=== PATIENT | female | born 1980 | race Caucasian/White ===

== ENCOUNTER 2018-04-30 13:28 | Emergency (ER) | payer BC ==
[2018-04-30 14:51] VITALS: BMI 35.9
--- NOTE | 2018-04-30 16:38 | US ---
Date of service: 04/30/2018 PROCEDURE: OB Pelvic Ultrasound HISTORY: BPP and cervical length LMP: Not submitted. COMPARISON: None available. FINDINGS: A single viable intrauterine gestation is identified in cephalic lie with heart rate of 130 beats per minute. An anterior placenta is appreciate without abruption or previa with cervical length variable between 3.2 and 3.5 cm. Consider possible contractions related variation. Biophysical profile results are as follows: breathing movements 2/2. movements 2/2. tones 2/2. Amniotic fluid 2/2. Total biophysical profile score 8/8. Amniotic fluid index measures 18.3 cm. More comprehensive ultrasonography available as clinically warranted. OTHER FINDINGS: None. IMPRESSION: Biophysical profile score 8/8. Cervical length appears variable may be a function of uterine contraction. Clinically correlate further.
[2018-04-30 17:07] LABS: SQUAMOUS EPITHIAL 4 /hpf (0-5); URINE BACTERIA RARE (<OCC); URINE BILIRUBIN NEGATIVE (NEGATIVE); URINE BLOOD MODERATE (NEGATIVE); URINE CLARITY SLIGHTY-CLOUDY (Clear); URINE COLOR STRAW (YELLOW); URINE GLUCOSE (UA) NEG (NEGATIVE); URINE LEUKOCYTE ESTERASE TRACE Leu/uL (Negative); URINE PROTEIN NEGATIVE (NEGATIVE); URINE UROBILINOGEN 0.2-1.0 mg/dL (0.2-1.0)
[2018-05-01 13:33] VITALS: BP 125/87; PULSE 90; RESP 18; TEMP 98.2; O2SAT 98
--- NOTE | 2018-05-01 15:13 | OBHP ---
Datetime: 04/30/2018 13:47 IP Adm Impression: , intrauterine IP Admit Plan: Observation/Evaluation Admit Comment, IP Provider: HPI Ob/ care: Dr. Cloud Obhx: Pmhx: HomeRx: SocialHx: SurgHx: Famhx: Allergies ROS negative except per HPI Physical Exam Gen: Heart: Lungs: Abd: Extremities: Assessment and Plan: Pelvic Type - PN: Not Done Extremities - PN: Normal Abdomen - PN: Normal Back - PN: Not Done Breast - PN: Not Done Lungs - PN: Normal Heart - PN: Normal Thyroid - PN: Not Done Neurologic - PN: Not Done HEENT - PN: Not Done General - PN: Normal Contraction Comments Provider: occasional Gestation - Est Wks by US: 33.4 IP Hx Assessment: The History has been Reviewed and is Current EGA AdmitDate IP: 33.4 Vital Signs Provider: Reviewed IP Chief Complaint: Vaginal bleeding Genitourinary Exam: Not Done DTRs - PN: Not Done
== END 2018-04-30 18:15 | disposition home or self-care (01) ==
LOC: H.EROB2 13:28 → H.EROB 13:56 → H.EROB2 18:15
DX: O26.853 Spotting complicating pregnancy, third trimester (principal); Z3A.33 33 weeks gestation of pregnancy

== ENCOUNTER 2018-05-04 05:40 | Inpatient (IN) | payer BC ==
[2018-05-04 07:12] VITALS: BMI 33.3
[2018-05-04] MEDS ORDERED: Betamethasone Soluspan 30 mg/5mL Inj Susp IM ONE ×2 (07:13→21:00)
[2018-05-04] MEDS ORDERED: Lactated Ringer's 1,000 ML IV SCH (07:15)
--- NOTE | 2018-05-04 07:24 | OBHP ---
Datetime: 05/04/2018 07:17 IP Adm Impression: , intrauterine IP Admit Plan: Observation/Evaluation Admit Comment, IP Provider: Patient is a @ 34.1 wks with bleeding and contractions. Diana reported that she was in hospital 04/30 with similar complaints, was evaluated, found to be closed exa m and discharged home. Over the weekend patient saw no bleeding. 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 No leaking, +FM. On exam, pt about 1cm dilated/thick/ high and noticeable blood on exam. FHR = 120 Cat-I, marcy q 3-7 mins A/P 1. Patient to be observed to rule out labor and/or abruption. Patient to be kept NPO, IVF started, Type and Screen, CBC, CMP 2. Will give Betamethasone and bedside U/S to evaluate placenta/growth to be done 3. Will observe patient to evaluate for change in status Pelvic Type - PN: Adequate Extremities - PN: Normal Abdomen - PN: Normal Back - PN: Normal Breast - PN: Normal Lungs - PN: Normal Heart - PN: Normal Thyroid - PN: Normal Neurologic - PN: Normal HEENT - PN: Normal General - PN: Normal FHR - Baseline A Provider: 120 Contraction Comments Provider: q 3-7 mins EGA AdmitDate IP: 34.1 Vital Signs Provider: Reviewed; Within Normal Limits IP Chief Complaint: Uterine contractions; Vaginal bleeding NICHD Variability Prov Fetus A: Moderate 6-25bpm NICHD Accel Fetus A IP Provider: 15X15 NICHD Decel Fetus A IP Provider: None Dilatation, Provider: 1cm Effacement, Provider: THick Station, Provider: -3 Genitourinary Exam: Normal DTRs - PN: Normal
[2018-05-04 07:57] LABS: BASO % 0.3 % (0.0-2.0); EOS # 0.3 K/uL (0.0-0.7); EOS % 3.4 % (0.0-4.0); HEMOGLOBIN 11.5 g/dL (12.0-16.0); LYMPH # 1.6 K/uL (1.0-4.3); LYMPH % 18.2 % (20.0-40.0); MEAN CELL VOLUME 86.7 fl (81.0-99.0); MEAN CORPUSCULAR HEMOGLOBIN 28.3 pg (27.0-31.0); MEAN CORPUSCULAR HGB CONC 32.7 g/dL (33.0-37.0); MEAN PLATELET VOLUME 8.2 fl (7.2-11.7); MONO # 0.6 K/uL (0.0-0.8); MONO % 6.6 % (0.0-10.0); NEUT # 6.3 K/uL (1.8-7.0); NEUT % 71.5 % (50.0-75.0); NRBC % 0.1 % (0.0-0.0); RBC 4.05 Mil/uL (3.80-5.20); RED CELL DISTRIBUTION WIDTH 14.2 % (11.5-14.5); WHITE BLOOD COUNT 8.9 K/uL (4.8-10.8)
[2018-05-04 08:05] LABS: ALB/GLOB RATIO 0.9 (1.0-2.1); ALBUMIN 3.3 g/dL (3.5-5.0); ALT/SGPT 26 U/L (9-52); AST/SGOT 21 U/L (14-36); BLOOD UREA NITROGEN 11 mg/dl (7-17); CALCIUM 8.7 mg/dL (8.4-10.2); GFR NON-AFRICAN AMERICAN > 60
--- NOTE | 2018-05-04 10:51 | OBADHP ---
Datetime: 05/04/2018 09:26 Admit Comment, IP Provider: 37 y/o female w/ hx of GDM @ 34.1wk GA presnted to [facility] w/ c/o p ainful contractions every 4 mins. She denies VFL, endorses movement. Denies headache, visual ch anges, CP, SOB, urinary symptoms. Last office visit 04/23/18. OB: Dr. Cloud Obhx: Anterior placenta _ GDM w/ current . x1 (03/2017) Pmhx: denies HomeRx: metformin 1000mg PO BID, vitamins SocialHx: denies toxic habits Surgicalhx: denies Famhx: Mother w/ DM2, Father w/ hypercholesterolemia Allergies: NKDA ROS: negative exept per HPI Phyiscal Exam: Gen: lying in bed comfortably Heart: S1S2 present, RRR Lungs: normal resp effort Abd: Gravid, normal BS, soft, non-tender Extremities: No swelling/erythema/tenderness Assessment and Plan 37 y/o female @ 34.1 wk IUP; threatened pre-term labor GDM on Metformin 1000mg PO BID @ home Anterior placenta Hx of in 2016 Blood type A+, AB neg, Rubella Immune, HBsAg neg, HIV neg 10/22/17, RPR neg 10/22/17, GC/C neg Admit to L_D for close monitoring Cont. [place] and NST monitoring Bethamethasone 12mg IM x1 now, and another dose in 12 hours Check fasting glucose, and 2 hours postprandial CBC, type and screen Diabetic diet Metfomin 1000mg PO BID Case discussed w/ attending, Dr. Ai Wilson, [facility] OB Hospitalist on-call. Pt seen on rounds. She is comfortable. No VB currently. She is hungry. PLAN: will admit for steroid doses/diabetic control/observing for labor progress/VB...sono today s houwed 35w size ceph (last week breech). Her and her husbands questoins answered. MAHNDO Extremities - PN: Normal Abdomen - PN: Normal Back - PN: Not Done Breast - PN: Not Done Lungs - PN: Normal Heart - PN: Normal Thyroid - PN: Not Done Neurologic - PN: Not Done HEENT - PN: Not Done General - PN: Normal Presentation-Admit: Vertex Gestation - Est Wks by US: 34.1 IP Hx Assessment: The History has been Reviewed and is Current Vital Signs Provider: Reviewed; Within Normal Limits IP Chief Complaint: Uterine contractions FHR Category Provider Fetus A: Category I NICHD Decel Fetus A IP Provider: None Genitourinary Exam: Not Done DTRs - PN: Not Done EGA AdmitDate IP: 34.1 IP Adm Impression: , intrauterine ; No Active Labor; Intact Membranes IP Admit Plan: Admit to unit Datetime: 05/04/2018 07:17 Pelvic Type - PN: Adequate FHR - Baseline A Provider: 120 Contraction Comments Provider: q 3-7 mins NICHD Variability Prov Fetus A: Moderate 6-25bpm NICHD Accel Fetus A IP Provider: 15X15 Dilatation, Provider: 1cm Effacement, Provider: THick Station, Provider: -3
--- NOTE | 2018-05-04 16:21 | US ---
Date of service: 05/04/2018 PROCEDURE: LIMITED OBSTETRICAL ULTRASOUND HISTORY: RECENT ONSET OF SPOTTING. COMPARISON: BIOPHYSICAL PROFILE STUDY 04/30/2018 TECHNIQUE: Standard protocol for this study/examination. FINDINGS: Cephalic presentation. Anterior placenta. No evidence of abruption or previa Gestational age derived from LMP 36 weeks 6 days. KIANA 05/26/2018. Gestational age derived from the following biometric parameters 34 weeks 4 days. KIANA 06/11/2018 Biparietal diameter 8.58 cm Head circumference 30.37 cm Abdominal circumference 31.10 cm Femur length 6.82 cm Estimated weight 2530 g Calculated cardiac rate 137 beats per min. Closed cervix measuring 3.7 cm IMPRESSION: 34 weeks 4 days live intrauterine gestation. Gestational concordance documented.
[2018-05-04 21:39] LABS: SQUAMOUS EPITHIAL 3 /hpf (0-5); URINE BACTERIA RARE (<OCC); URINE BILIRUBIN NEGATIVE (NEGATIVE); URINE CLARITY SLIGHTY-CLOUDY (Clear); URINE COLOR YELLOW (YELLOW); URINE GLUCOSE (UA) NEG (NEGATIVE); URINE LEUKOCYTE ESTERASE MOD Leu/uL (Negative); URINE PROTEIN NEGATIVE (NEGATIVE); URINE UROBILINOGEN 0.2-1.0 mg/dL (0.2-1.0)
[2018-05-04 21:54] LABS: URINE BLOOD MODERATE (NEGATIVE)
--- NOTE | 2018-05-04 22:15 | OBPN ---
Datetime: 05/04/2018 21:20 IP Progress Impression: Reassuring heart rate IP Progress Plan: Discharge FHR - Baseline A Provider: 125 IP Progress Note Comment: She feels occ CTX; no VB; No SROM. She was given second dose of betametha sone. UA Mod leku est; +WBC; + RBC : will check urine culture...give cephalexin 500 mg po TID Threatened labor PLAN: no cerivcal change; reassuring tracing. condition explained to pt. She and her mirian copeland. She wants to go home...janeth jeanoscarglenna and follow up this as scheduled...labor instru ctions given NICHD Accel Fetus A IP Provider: 15X15 FHR Category Provider Fetus A: Category I NICHD Variability Prov Fetus A: Moderate 6-25bpm Dilatation, Provider: FT Effacement, Provider: long Station, Provider: francoise NICHD Decel Fetus A IP Provider: None Datetime: 05/04/2018 09:26 Gestation - Est Wks by US: 34.1 Presentation-Admit: Vertex Vital Signs Provider: Reviewed; Within Normal Limits Datetime: 05/04/2018 07:17 Contraction Comments Provider: q 3-7 mins
[2018-05-05 07:26] VITALS: BP 125/71; PULSE 91; RESP 20; TEMP 98.2; O2SAT 99
== END 2018-05-04 22:35 | disposition home or self-care (01) | DRG 833 ==
LOC: H.EROB2 05:40 → H.L&D 09:16
PROVIDERS: ADMIT Obstetrics & Gynecology; ATTEND Obstetrics & Gynecology
PROC: 4A1HXCZ Monitoring of Products of Conception, Cardiac Rate, External Approach (ICD-10-PCS; principal; 2018-05-04)
DX: O60.03 Preterm labor without delivery, third trimester (principal); O34.211 Maternal care for low transverse scar from previous cesarean delivery; N85.8 Other specified noninflammatory disorders of uterus; J45.909 Unspecified asthma, uncomplicated; O99.513 Diseases of the respiratory system complicating pregnancy, third trimester; Z3A.34 34 weeks gestation of pregnancy; O24.415 Gestational diabetes mellitus in pregnancy, controlled by oral hypoglycemic drugs; Z79.84 Long term (current) use of oral hypoglycemic drugs

== ENCOUNTER 2018-05-07 15:10 | Inpatient (IN) | payer BC ==
[2018-05-07 15:34] VITALS: BMI 35.9
[2018-05-07] MEDS ORDERED: ceFAZolin 2 GM in Sodium Chloride 0.9% 100 ML IVPB ONE (15:34)
[2018-05-07] MEDS ORDERED: Lactated Ringer's 1,000 ML IV ONE ×2 (15:34→18:08)
[2018-05-07] MEDS: Lactated Ringer's 1,000 ML IV ONE ×2 (15:39→15:55)
[2018-05-07] MEDS ORDERED: OXYTOCIN/0.9 % NS 20 UNIT/1,000 ML BAG IV ONE (15:40)
[2018-05-07] MEDS ORDERED: Oxytocin 30 UNIT 30 UNITS/500 ML BAG IV ONE (15:40)
[2018-05-07] MEDS ORDERED: Lactated Ringer's 1,000 ML IV SCH ×3 (15:45→18:12)
[2018-05-07] MEDS ORDERED: Morphine 1 mg/ml preservative-free Inj(Duramorph) ONE (15:46)
[2018-05-07 16:02] LABS: BASO % 0.3 % (0.0-2.0); EOS # 0.2 K/uL (0.0-0.7); EOS % 1.2 % (0.0-4.0); LYMPH # 2.6 K/uL (1.0-4.3); LYMPH % 19.4 % (20.0-40.0); MEAN CELL VOLUME 85.7 fl (81.0-99.0); MEAN CORPUSCULAR HGB CONC 32.7 g/dL (33.0-37.0); MEAN PLATELET VOLUME 8.5 fl (7.2-11.7); MONO # 0.9 K/uL (0.0-0.8); MONO % 6.5 % (0.0-10.0); NEUT # 9.7 K/uL (1.8-7.0); NEUT % 72.6 % (50.0-75.0); NRBC % 0.1 % (0.0-0.0); RBC 4.28 Mil/uL (3.80-5.20); RED CELL DISTRIBUTION WIDTH 14.1 % (11.5-14.5); WHITE BLOOD COUNT 13.3 K/uL (4.8-10.8)
[2018-05-07] MEDS ORDERED: DiphenhydrAMINE 50 mg/ml Inj IVP PRN (16:20)
[2018-05-07] MEDS ORDERED: Naloxone 0.4 mg/ml Inj (Adult) IVP PRN (16:20)
[2018-05-07] MEDS ORDERED: Oxycodone/Acetaminophen 5/325 mg Tab PO PRN ×5 (17:04→18:12)
[2018-05-07] MEDS ORDERED: Simethicone 80 mg Chewtab PO SCH ×2 (22:00)
[2018-05-07] MEDS: Simethicone 80 mg Chewtab PO SCH (22:34)
[2018-05-08] MEDS: Simethicone 80 mg Chewtab PO SCH ×4 (04:00→21:59)
[2018-05-08 06:23] LABS: HEMOGLOBIN 10.4 g/dL (12.0-16.0); MEAN CORPUSCULAR HEMOGLOBIN 28.6 pg (27.0-31.0); MEAN CORPUSCULAR HGB CONC 33.3 g/dL (33.0-37.0); RBC 3.63 Mil/uL (3.80-5.20); RED CELL DISTRIBUTION WIDTH 14.4 % (11.5-14.5); WHITE BLOOD COUNT 10.7 K/uL (4.8-10.8)
[2018-05-08] MEDS: Multivitamin With Minerals Tab PO SCH (08:12)
[2018-05-08] MEDS ORDERED: Multivitamin With Minerals Tab PO SCH ×2 (09:00)
--- NOTE | 2018-05-08 11:10 | OBDS ---
DELIVERY PERSONNEL Delivery Doctor: Crys Oneil MD Scrub Nurse: Katherine Figueredo Manager System: Berta Tay RN Anesthesiologist: Bertrand Russell MD Resident: Dr Vero Wilson MATERNAL INFORMATION Delivery Anesthesia: Spinal Medications in Delivery: pitocin and ancef 2grams Estimated Blood Loss (ml): 800 Placenta Cultured: Yes Maternal Complications: Other Other Maternal Complications: Ultra sound done at bedside by dr serrano baby transverse and c/s x1 p reviously. Provider Comments: Patient presented to the ED with contractions. Patient found to be fully dilated with transverse presentation and history of x1. Patient consented for repeat . Patient delivered a viable infant male with Apgars of 5 and 9 at one and 5 minutes respectively. Normal uterus, normal tubes and ovaries bilaterally. Estimated blood loss 800 cc Fluids Ringer's No complications Neonatology present at delivery. LABOR SUMMARY EDC: 06/14/2018 00:00 No. Babies in Womb: 1 Attempted: No Labor Anesthesia: Intrathecal LABOR INFORMATION Reason for Induction: Not Applicable Onset of Labor: 05/07/2018 13:00 Complete Dilatation: 05/07/2018 15:27 Oxytocin: N/A Group B Beta Strep: Not Done Steroids Given: Full Course Reason Steroids Not Administered: Not Applicable Other Reason Not Administered: 12 hrs dose done on 05/04 MEMBRANES Membranes Rupture Method: Spontaneous Rupture of Membranes: 05/07/2018 15:54 Length of Rupture (hrs): 0.17 Amniotic Fluid Color: Clear Amniotic Fluid Amount: Moderate Amniotic Fluid Odor: None STAGES OF LABOR Stage 1 hrs: 2 Stage 1 min: 27 Stage 2 hrs: 0 Stage 2 min: 37 Stage 3 hrs: 0 Stage 3 min: 1 Total Time in Labor hrs: 3 Total Time in Labor min: 5 CSECTION DELIVERY Primary Indication: Repeat Elective Secondary Indication: Transverse/Complex Presentation CSection Urgency: Emergency CSection Incidence: Repeat Labor: Labor Elective: Nonelective CSection Incision: Lower Uterine Transverse BABY A INFORMATION Infant Delivery Date/Time: 05/07/2018 16:04 Method of Delivery: Born in Route : No : N/A Forceps: N/A Vacuum Extraction: N/A Shoulder Dystocia : No SHOULDER DYSTOCIA BABY A Infant Delivery Date/Time: 05/07/2018 16:04 PRESENTATION/POSITION BABY A Presentation: Cephalic Cephalic Presentation: N/A PLACENTA INFORMATION BABY A Placenta Delivery Time : 05/07/2018 16:05 Placenta Method of Delivery: Manual Removal Placenta Status: Delivered SCORES BABY A Heart Rate 1 min: >100 bpm Resp Effort 1 min: Slow, Irregular Reflex Irritability 1 min: Grimace Muscle Tone 1 min: Some Flexion of Extremities Color 1 min: Blue/Pale Resuscitation Effort 1 min: Tactile Stimulation; PPV/NCPAP SCORE 1 MIN: 5 Heart Rate 5 min: >100 bpm Resp Effort 5 min: Good Cry Reflex Irritability 5 min: Cough or Sneeze or Pulls Away Muscle Tone 5 min: Active Motion Color 5 min: Body [place], Extremities Blue Resuscitation Effort 5 min: N/A SCORE 5 MIN: 9 INFANT INFORMATION BABY A Gestational Age at Delivery: 34.4 Gestational Status: Term Outcome : Liveborn Condition : Stable Sex: Male IDENTIFICATION/MEDS BABY A ID Band Number: [id number] ID Band Location: Left Leg; Left Arm WEIGHT/LENGTH BABY A Infant Birthweight (gms): 2750 Infant Weight (lb): 6 Infant Weight (oz): 1 Infant Length Inches: 17.50 Length cms: 44.5 CORD INFORMATION BABY A No. Cord Vessels: 3 Nuchal Cord : N/A Cord pH Baby Venous: 7.26 Cord Blood Taken: Yes Infant Suction: Mouth; Nose ASSESSMENT BABY A Infant Complications: Other Complications Other: lie Physical Findings at Delivery: Within Normal Limits Infant Respirations: Appears Normal Blower Operator/ALS Called : Yes Infant Care By: Dr Braun Transferred To: NICU
--- NOTE | 2018-05-08 11:10 | OBDS ---
DELIVERY PERSONNEL Delivery Doctor: Crys Oneil MD Scrub Nurse: Katherine Figueredo Dean Of Boys: Berta Tay RN Anesthesiologist: Bertrand Russell MD Resident: Dr Vero Wilson MATERNAL INFORMATION Delivery Anesthesia: Spinal Medications in Delivery: pitocin and ancef 2grams Estimated Blood Loss (ml): 800 Placenta Cultured: Yes Maternal Complications: Other Other Maternal Complications: Ultra sound done at bedside by dr serrano baby transverse and c/s x1 p reviously. Provider Comments: Patient presented to the ED with contractions. Patient found to be fully dilated with transverse presentation and history of x1. Patient consented for repeat . Patient delivered a viable infant male with Apgars of 5 and 9 at one and 5 minutes respectively. Normal uterus, normal tubes and ovaries bilaterally. Estimated blood loss 800 cc Fluids Ringer's No complications Neonatology present at delivery. LABOR SUMMARY EDC: 06/14/2018 00:00 EDC: 06/14/2018 00:00 EDC: 06/14/2018 00:00 No. Babies in Womb: 1 Attempted: No Labor Anesthesia: Intrathecal LABOR INFORMATION Reason for Induction: Not Applicable Onset of Labor: 05/07/2018 13:00 Complete Dilatation: 05/07/2018 15:27 Oxytocin: N/A Group B Beta Strep: Not Done Steroids Given: Full Course Reason Steroids Not Administered: Not Applicable Other Reason Not Administered: 12 hrs dose done on 05/04 MEMBRANES Membranes Rupture Method: Spontaneous Rupture of Membranes: 05/07/2018 15:54 Length of Rupture (hrs): 0.17 Amniotic Fluid Color: Clear Amniotic Fluid Amount: Moderate Amniotic Fluid Odor: None STAGES OF LABOR Stage 1 hrs: 2 Stage 1 min: 27 Stage 2 hrs: 0 Stage 2 min: 37 Stage 3 hrs: 0 Stage 3 min: 1 Total Time in Labor hrs: 3 Total Time in Labor min: 5 CSECTION DELIVERY Primary Indication: Repeat Elective Secondary Indication: Transverse/Complex Presentation CSection Urgency: Emergency CSection Incidence: Repeat Labor: Labor Elective: Nonelective CSection Incision: Lower Uterine Transverse BABY A INFORMATION Infant Delivery Date/Time: 05/07/2018 16:04 Method of Delivery: Born in Route : No : N/A Forceps: N/A Vacuum Extraction: N/A Shoulder Dystocia : No SHOULDER DYSTOCIA BABY A Infant Delivery Date/Time: 05/07/2018 16:04 PRESENTATION/POSITION BABY A Presentation: Cephalic Cephalic Presentation: N/A PLACENTA INFORMATION BABY A Placenta Delivery Time : 05/07/2018 16:05 Placenta Method of Delivery: Manual Removal Placenta Status: Delivered SCORES BABY A Heart Rate 1 min: >100 bpm Resp Effort 1 min: Slow, Irregular Reflex Irritability 1 min: Grimace Muscle Tone 1 min: Some Flexion of Extremities Color 1 min: Blue/Pale Resuscitation Effort 1 min: Tactile Stimulation; PPV/NCPAP SCORE 1 MIN: 5 Heart Rate 5 min: >100 bpm Resp Effort 5 min: Good Cry Reflex Irritability 5 min: Cough or Sneeze or Pulls Away Muscle Tone 5 min: Active Motion Color 5 min: Body [place], Extremities Blue Resuscitation Effort 5 min: N/A SCORE 5 MIN: 9 INFANT INFORMATION BABY A Gestational Age at Delivery: 34.4 Gestational Status: Term Infant Outcome : Liveborn Condition : Stable Sex: Male IDENTIFICATION/MEDS BABY A ID Band Number: [id number] ID Band Location: Left Leg; Left Arm WEIGHT/LENGTH BABY A Infant Birthweight (gms): 2750 Infant Weight (lb): 6 Weight (oz): 1 Infant Length Inches: 17.50 Length cms: 44.5 CORD INFORMATION BABY A No. Cord Vessels: 3 Nuchal Cord : N/A Infant Cord pH Baby Venous: 726 Cord Blood Taken: Yes Infant Suction: Mouth; Nose ASSESSMENT BABY A Complications: Other Complications Other: lie Physical Findings at Delivery: Within Normal Limits Respirations: Appears Normal Assistant Gm Of Content & Delivery/ALS Called : Yes Infant Care By: Dr Braun Transferred To: NICU
--- NOTE | 2018-05-08 11:12 | OBADHP ---
Datetime: 05/07/2018 15:35 Admit Comment, IP Provider: 37 y/o female w/ hx of GDM @ 34.4wk GA brought to [facility] via EMT w / c/o painful contraction that started at 1pm. She endorses vaginal bleeding like menses. No VFL, end orses movement. OB: Dr. Cloud Obhx: Anterior placenta _ GDM w/ current . x1 (03/2017) Pmhx: denies HomeRx: metformin 1000mg PO BID, vitamins SocialHx: denies toxic habits Surgicalhx: denies Famhx: Mother w/ DM2, Father w/ hypercholesterolemia Allergies: NKDA ROS: negative exept per HPI Phyiscal Exam: Gen: acute distress, patient very uncomfortable SVE (by Dr. Oneil at 15:27) fully, bulging membrane Assessment and Plan 37 y/o female w/ hx of @ 34.4 wk IUP in labor U/S at bedside showed fetus in transverse position S/P 2 doses of betamethaseone on 05/04 11:28 and 21:00 GDM on Metformin 1000mg PO BID Anterior placenta Admit patient to L_D for emergency anesthesiology called immediately CBC, Type and Screen 1L LR IV bolus SCDs for DVT prophylaxis Ancef 2mg IVx 1 Case discussed w/ attending, Dr. Thad Wilson, pgyi Comments, ACOG Physical Exam: U/S at bedside showed fetus in transverse position Gestation - Est Wks by US: 34.4 IP Hx Assessment: The History has been Reviewed and is Current Vital Signs Provider: Reviewed; Within Normal Limits IP Chief Complaint: Uterine contractions NICHD Decel Fetus A IP Provider: None Dilatation, Provider: 10 Effacement, Provider: 100 EGA AdmitDate IP: 34.4 IP Adm Impression: , intrauterine IP Admit Plan: Admit to unit; Initiate Section protocol Datetime: 05/07/2018 15:30 Pelvic Type - PN: Not Done Extremities - PN: Not Done Abdomen - PN: Not Done Back - PN: Not Done Breast - PN: Not Done Lungs - PN: Not Done Heart - PN: Not Done Thyroid - PN: Not Done Neurologic - PN: Not Done HEENT - PN: Not Done General - PN: Not Done Genitourinary Exam: Not Done DTRs - PN: Not Done Datetime: 05/04/2018 21:20 FHR - Baseline A Provider: 125 NICHD Variability Prov Fetus A: Moderate 6-25bpm NICHD Accel Fetus A IP Provider: 15X15 FHR Category Provider Fetus A: Category I Station, Provider: francoise
--- NOTE | 2018-05-08 19:09 | OBPPN ---
Datetime: 05/08/2018 19:04 PP Pain Prov: Within normal limits PP Nausea Prov: Denies PP Flatus Prov: No PP BM Prov: No PP Breasts Prov: Normal PP Heart Prov: Normal PP Lungs Prov: Normal PP Abdomen/Uterus Prov: Normal PP Lochia Prov: Normal PP Vulva/Perineum Prov: Normal PP CVA Tenderness Prov: Normal PP Extremities Prov: Normal PP C/S Incision Prov: Normal PP Progress Prov: Normal PP Impression Prov: Normal progression PP Plan Prov: Continue present management PP Progress Note Prov: She feels fine today; no problems H/H 02/04 A: S/P C-sectoin day 1 (34w transverse / previous C/S) PLAN: cont post op care Vital Signs Provider PP: Reviewed; Within Normal Limits
--- NOTE | 2018-05-08 23:13 | OP ---
PROCEDURE DATE: 05/07/2018 PREOPERATIVE DIAGNOSES: labor, prior section, transverse presentation, gestational hypertension. POSTOPERATIVE DIAGNOSES: labor, prior section, transverse presentation, gestational hypertension. OPERATION PERFORMED: Repeat low-flap transverse section via Pfannenstiel incision. SURGEON: Laurent Oneil MD GEOLOGICAL ENGINEERING TEACHER: Dr. Cortney Apple ANESTHESIOLOGIST: Barby Russell MD ANESTHESIA: Spinal. ESTIMATED BLOOD LOSS: 800 mL. FLUIDS: 2200 mL of lactated Ringer's. URINE OUTPUT: 200 mL of clear urine at the end of procedure. COMPLICATIONS: None. DESCRIPTION OF PROCEDURE: The patient was taken to the operating room where spinal anesthesia was found to be adequate. The patient was prepped and draped in a normal sterile fashion in a dorsal supine position with leftward tilt. A Pfannenstiel skin incision was made with a scalpel. This was carried down through to the underlying layer of fascia with the scalpel. Midline dissection was made in the fascial layer with the scalpel. The fascial incision was then extended bilaterally sharply with curved Ferrer scissors. The fascial layer was from the underlying rectus muscles both bluntly and sharply with curved Ferrer scissors. The rectus muscles were at the midline. The peritoneum was then identified, tented with Susan clamps x2, and entered sharply with Metzenbaum scissors. This peritoneal incision was then extended superiorly and inferiorly with good visualization of the urinary bladder. A bladder blade was inserted into the abdomen. The vesicouterine peritoneum was then identified, tented up with Susan clamps x2, and entered sharply with Metzenbaum scissors. This peritoneal incision was then extended superiorly and inferiorly with good visualization of the urinary bladder. The uterus was incised with the scalpel. The uterine incision was extended bilaterally with bandage scissors. The was found to be in transverse presentation. The infant was internally rotated to double-flipping breech presentation. The lower extremities were located, and delivered without complication. The infant's upper extremities were flexed across the anterior surface of the bilaterally and delivered without complication. The 's head was flexed and delivered without complication. The infant's nose and mouth were suctioned with bulb suction. The cord was clamped and cut. The infant was handed off to awaiting pediatricians. Cord gases were collected. Cord blood was collected. The placenta was removed manually. The uterus was cleared of all clots and debris. The uterine incision was repaired with 0 Vicryl in a running, locked fashion. The second layer with same suture was used to imbricate the first and to obtain excellent hemostasis. Re-inspection of the uterine incision proved excellent hemostasis. The abdomen and pelvis were irrigated with copious amounts of warm normal saline. Re-inspection of the uterine incision proved excellent hemostasis. All instruments were removed from the patient. The peritoneal layer was closed with a running stitch of 2-0 chromic. The rectus muscles were reapproximated in the midline with a running stitch of 2-0 chromic. The fascial layer was closed with a running stitch of 0 Vicryl. Subcutaneous tissue was closed with a running stitch of 3-0 plain. The skin was closed with a subcutaneous stitch of 3-0 Vicryl. The patient tolerated the procedure well. All sponge count, lap count, and needle counts were correct x2. The patient was given 2 g of Ancef just prior to the beginning of the procedure. There were no complications. The patient was taken to the recovery room in awake and stable condition. ADDENDUM: PREOPERATIVE CONSENT: The patient presented to obstetrical emergency department in active labor. The patient was found to be fully dilated. On bedside ultrasound, the patient was confirmed to be in transverse presentation. Due to active labor, transverse presentation and prior section, decision made for immediate delivery. Discussed with the patient the risks, benefits, alternatives of surgery and the patient consented for procedure. Anesthesia notified. INTRAOPERATIVE FINDINGS: Viable male with Apgars of 5 and 9 at one and five minutes respectively. Normal uterus, normal tubes and ovaries bilaterally. Laurent Oneil MD
[2018-05-09] MEDS: Simethicone 80 mg Chewtab PO SCH ×4 (03:55→21:58)
[2018-05-09] MEDS: Oxycodone/Acetaminophen 5/325 mg Tab PO PRN ×2 (07:58→16:37)
[2018-05-09] MEDS: Multivitamin With Minerals Tab PO SCH (09:41)
[2018-05-10] MEDS: Simethicone 80 mg Chewtab PO SCH ×2 (04:55→09:30)
[2018-05-10] MEDS: Multivitamin With Minerals Tab PO SCH (09:30)
--- NOTE | 2018-05-10 10:29 | OBPPN ---
Datetime: 05/10/2018 10:24 PP Pain Prov: Within normal limits PP Nausea Prov: Denies PP Flatus Prov: Yes PP Breasts Prov: Normal PP Heart Prov: Normal PP Lungs Prov: Normal PP Abdomen/Uterus Prov: Normal PP Lochia Prov: Normal PP Vulva/Perineum Prov: Normal PP CVA Tenderness Prov: Normal PP Extremities Prov: Normal PP C/S Incision Prov: Normal PP Progress Prov: Normal PP Comments Phys Exam Prov: Abd: Soft, NT, BS- present UT- Firm Incision: Clean and dry PP Impression Prov: Normal progression PP Plan Prov: Discharge PP Progress Note Prov: S/P Delivery, POD #3 Clinically Stable. Plan: Discharge Home. Vital Signs Provider PP: Reviewed
--- NOTE | 2018-05-10 10:31 | OBDCSUM ---
Datetime: 05/10/2018 10:28 Discharged to, Provider: Home Follow up at, Provider: Dr Cloud Disch Instr Activity: Normal activity Disch Instr Diet: Regular Discharge Instructions, Provider: Routine instructions given Discharge Diagnosis, Provider: Delivery Discharge Time: 05/10/2018 10:29 Follow up in weeks, Provider: 6 weeks Disch Referrals: None Contraception discussed, Prov: Yes Discharge Comment, Provider: S/P Delivery, Clinically Stable Discharge Diagnosis Prov Other: S/P Delivery, Clinically Stable
[2018-05-10 18:10] VITALS: BP 133/78; PULSE 76; RESP 20; TEMP 97.4; O2SAT 97
--- NOTE | 2018-05-11 10:17 | OBPPN ---
Datetime: 05/09/2018 08:04 PP Pain Prov: Within normal limits PP Nausea Prov: Denies PP Flatus Prov: Yes PP Breasts Prov: Normal PP Heart Prov: Normal PP Lungs Prov: Normal PP Abdomen/Uterus Prov: Normal PP Lochia Prov: Normal PP Vulva/Perineum Prov: Normal PP CVA Tenderness Prov: Normal PP Extremities Prov: Normal PP C/S Incision Prov: Normal PP Progress Prov: Normal PP Comments Phys Exam Prov: Abd: Soft, NT, BS- present UT- Firm, Below umbilicus Incision: Clean and dry PP Impression Prov: Normal progression PP Plan Prov: Continue present management PP Progress Note Prov: S/P repeat Section, POD #2 Clinically Stable. Plan: Continue care. IP PP Procedures: None Vital Signs Provider PP: Reviewed
== END 2018-05-10 13:30 | disposition home or self-care (01) | DRG 786 ==
LOC: H.EROB2 15:10 → H.L&D 15:34 → H.OB/GYN 20:46
PROVIDERS: ADMIT Obstetrics & Gynecology; ATTEND Obstetrics & Gynecology
PROC: 10D00Z1 Extraction of Products of Conception, Low, Open Approach (ICD-10-PCS; principal; 2018-05-07)
PROC: 4A1HXCZ Monitoring of Products of Conception, Cardiac Rate, External Approach (ICD-10-PCS; 2018-05-07)
DX: O24.425 Gestational diabetes mellitus in childbirth, controlled by oral hypoglycemic drugs (principal); O60.14X0 Preterm labor third trimester with preterm delivery third trimester, not applicable or unspecified; O32.2XX0 Maternal care for transverse and oblique lie, not applicable or unspecified; Z3A.34 34 weeks gestation of pregnancy; Z37.0 Single live birth; Z79.84 Long term (current) use of oral hypoglycemic drugs